=== PATIENT | female | born 1955 ===

== ENCOUNTER 2020-06-16 11:28 | Outpatient (CLI) | payer OTHER ==
[~2020-06-16 11:28] MED LIST: ULTRACET PO
== END 2020-06-16 11:43 | disposition home or self-care (01) ==
LOC: SONOGRAMA 11:28
PROVIDERS: ATTEND Pathology Anatomic Pathology & Clinical Pathology
DX: E04.2 Nontoxic multinodular goiter (principal)

== ENCOUNTER 2025-05-24 13:39 | Outpatient (CLI) | payer OTHER | END 2025-05-24 13:40 | disposition home or self-care (01) | LOC: SONOGRAMA 13:39 | PROVIDERS: ATTEND Pathology Anatomic Pathology & Clinical Pathology | DX: D34 Benign neoplasm of thyroid gland (principal); E07.89 Other specified disorders of thyroid; E04.2 Nontoxic multinodular goiter ==